=== PATIENT | female | born 1960 | race Caucasian/White ===

== ENCOUNTER 2017-01-21 10:47 | Outpatient (CLI) | payer BC | END 2017-01-21 10:48 | disposition home or self-care (01) | DX: Z12.31 Encounter for screening mammogram for malignant neoplasm of breast (principal) ==

== ENCOUNTER 2017-02-05 11:04 | Day surgery (SDC) | payer BC ==
[2017-02-05] MEDS ORDERED: LACTATED RINGERS 1,000 ML IV ONE ×2 (11:43→15:18)
[2017-02-05] MEDS ORDERED: fentaNYL 250 MCG/5 ML VIAL IVP ONE (15:20)
[2017-02-05] MEDS ORDERED: MIDAZOLAM 2 MG/2 ML VIAL IVP ONE (15:20)
== END 2017-02-05 11:05 | disposition home or self-care (01) ==
PROC: 0DJD8ZZ Inspection of Lower Intestinal Tract, Via Natural or Artificial Opening Endoscopic (ICD-10-PCS; principal; 2017-02-05 12:15)
DX: Z12.11 Encounter for screening for malignant neoplasm of colon (principal); K64.8 Other hemorrhoids; Z88.0 Allergy status to penicillin
CPT/HCPCS: 45378; J3010; J7120

== ENCOUNTER 2017-02-18 09:19 | Outpatient (CLI) | payer BC | END 2017-02-18 09:20 | disposition home or self-care (01) | DX: Z13.6 Encounter for screening for cardiovascular disorders (principal); Z13.29 Encounter for screening for other suspected endocrine disorder; R53.83 Other fatigue ==

== ENCOUNTER 2018-09-24 11:32 | Outpatient (CLI) | payer OTHER ==
--- NOTE | 2018-09-25 10:14 | Mammography Report ---
Reason: SCREENING MAMMO Procedure Date: 09/24/2018 Accession Number: [id number] / [id number] Procedure: MGS - Screening Mammo Dig Bilat CPT Code: FULL RESULT: EXAM: Screening Mammo Dig Bilat DATE: 09/24/2018 11:51 AM CLINICAL HISTORY: 58-year-old female with history of benign breast biopsy. TECHNIQUE: Bilateral CC, laterally exaggerated CC, MLO views were obtained. COMPARISON: 01/21/2017, 06/22/2013, 05/26/2013, 06/22/2011. FINDINGS: The breasts demonstrate extremely dense parenchyma bilaterally, limiting the sensitivity of mammography. No suspicious masses, clustered microcalcifications, or regions of architectural distortion are identified. IMPRESSION: Negative examination RECOMMENDATION: Routine annual screening unless otherwise clinically indicated. BIRADS CATEGORY 1: Negative STANDARD QUALIFYING STATEMENTS: 1. This examination was reviewed with the aid of Computer-Aided Detection (CAD). 2. A negative or benign imaging report should not delay biopsy if clinically suspicious findings are present. Consider surgical consultation if warrented. More than 5% of cancers are not identified by imaging. 3. Dense breasts may obscure an underlying neoplasm. 4. This examination was reviewed without the aid of 3D breast imaging (tomosynthesis).
== END 2018-09-24 11:33 | disposition home or self-care (01) ==
LOC: DI.S 11:32
DX: Z12.31 Encounter for screening mammogram for malignant neoplasm of breast (principal)
CPT/HCPCS: 77067

== ENCOUNTER 2020-02-18 14:03 | Outpatient (CLI) | payer OTHER | END 2020-02-18 14:04 | disposition home or self-care (01) | LOC: COV 14:03 | PROVIDERS: ATTEND Family Medicine | DX: R05 Cough (principal) ==

== ENCOUNTER 2021-01-31 07:53 | Outpatient (CLI) | payer OTHER ==
--- NOTE | 2021-02-03 09:06 | Mammography Report ---
BILATERAL DIGITAL SCREENING MAMMOGRAM 3D/2D WITH EXAGGERATED CC: 01/31/2021 CLINICAL: Routine screening. Comparison is made to exams dated: 09/24/2018 mammogram and 01/21/2017 mammogram - [facility]. The tissue of both breasts is extremely dense, which lowers the sensitivity of mammograp hy. No significant masses, calcifications, or other findings are seen in either breast. There has been no significant interval change. IMPRESSION: NEGATIVE There is no mammographic evidence of malignancy. A 1 year screening mammogram is recommended. This exam was interpreted at Station ID: [id number]. NOTE: For mammograms, a report in lay terms will be sent to the patient. Approximately 15% of breast malignancies will not be visualized mammographically. In the management of a palpable breast mass, a negative mammogram must not discourage biopsy of a clinically suspicious lesion. Electronically Signed By: Maynor Shah M.D. [email or web address]:01/31/2021 08:32:49 ACR BI-RADS Category 1: Negative 3341F PARENCHYMAL PATTERN: (VD) - The breast(s) demonstrate(s) extremely dense parenchyma, limiting the sen sitivity of mammography. BI-RADS CATEGORY: (1) - 1 RECOMMENDATION: (ANNUAL) - Recommend routine annual screening mammography. 20220201 1 year screening LATERALITY: (B)
== END 2021-01-31 07:54 | disposition home or self-care (01) ==
LOC: DI.S 07:53
PROVIDERS: ATTEND Nurse Practitioner Family
DX: Z12.31 Encounter for screening mammogram for malignant neoplasm of breast (principal)

== ENCOUNTER 2021-06-23 08:00 | Outpatient (CLI) | payer OTHER ==
--- NOTE | 2021-06-23 11:42 | XRAY Report ---
PROCEDURE: Sinus Complete INDICATIONS: FACIAL PAIN ATYPICAL TECHNIQUE: 3 views of the sinuses were acquired. COMPARISON: None FINDINGS: Sinuses: The visualized sinuses demonstrate no air-fluid levels or mucosal thickening. The visualiz ed mastoids also appear clear. Bones: No suspicious bony lesions. Nasal septum is midline. IMPRESSION: Bilateral paranasal sinuses are fairly well aerated. No gross mucosal thickening or facial bone abnor mality is seen. Reviewed by: Sudarshan Garcia MD on 06/23/2021 11:41 AM PDT Approved by: Sudarshan Garcia MD on 06/23/2021 11:41 AM PDT Station ID: [id number]
== END 2021-06-23 23:59 | disposition home or self-care (01) ==
LOC: DI.S 08:00
PROVIDERS: ATTEND Physician Assistant Medical
DX: G50.1 Atypical facial pain (principal)